=== PATIENT | male | born 1985 | race Two or more races ===

== ENCOUNTER 2019-02-21 18:33 | Emergency (ER) | payer SELFPAY ==
[~2019-02-21] VITALS: Ht 177.8 cm; Wt 81.6 kg
[2019-02-21 18:38] VITALS: BP 138/84
[2019-02-21] MEDS ORDERED: IBUPROFEN 200 MG TABLET. PO ONE (19:30)
[2019-02-21] MEDS ORDERED: HYDR-3164 PO (20:03)
--- NOTE | 2019-02-21 20:03 | PHYS DOC ---
Past Medical History Past Medical History: No Pertinent History Past Surgical History: Other Additional Past Surgical Histo: L Wrist Alcohol Use: Occasionally Drug Use: None Adult General Chief Complaint Chief Complaint: WRIST PAIN HPI HPI 33 y/o male presents to ER via POV for c/o mechanical fall at approx. 1 p.m. when he fell down a few steps. Pt reports he braced his fall with extension of his left upper extremity and has since had left wrist pain. Patient denies striking his head or having any head, neck, or back pain. Patient reports only injury is to left wrist brace had prior surgery 3-4 years ago with plate and pins placed. Review of Systems Review of Systems Constitutional: Denies fatigue Eyes: Denies eye pain HENT: Denies head/neck pain Respiratory: Denies labored breathing Cardiovascular: No additional information not addressed in HPI [] GI: Denies abdominal pain, nausea, vomiting : Denies urinary sxs Musculoskeletal: Denies back pain. Reports lt wrist pain Integument: Denies open wounds/abrasions/bruising Neurologic: Denies headache, focal weakness or sensory changes [] All other systems were reviewed and found to be within normal limits, except as documented in this note. Current Medications Current Medications Current Medications Medications (Trade) Dose Ordered Sig/Haja Start Time Stop Time Status Last Admin Dose Admin Ibuprofen (Motrin) 600 mg 1X ONCE 02/21/19 19:30 02/21/19 19:31 DC 02/21/19 19:20 600 MG Allergies Allergies Allergies Coded Allergies Type Severity Reaction Last Updated Verified No Known Drug Allergies 02/21/19 No Physical Exam Physical Exam Constitutional: Well developed, well nourished, no acute distress, non-toxic appearance. Steady unassisted gait HENT: Normocephalic, atraumatic, oropharynx moist, no oral injury, nose normal. [] Eyes: Pupils equal, conjunctiva normal, no discharge. [] Neck: Normal range of motion, no tenderness, supple, no stridor. [] Cardiovascular: Heart rate regular rhythm, no murmur [] Lungs & Thorax: Bilateral breath sounds clear to auscultation- resp. equal/nonlabored Abdomen: Bowel sounds normal, soft, no tenderness Skin: Warm, dry, no erythema, no rash. [] Back: No tenderness, no CVA tenderness. Full ROM Extremities: No cyanosis, no clubbing, ROM intact, no edema. 2+ radial bilat. Tender lt anterior wrist- no skin discoloration. Deformity medial wrist- healed surgical scar along medial side of wrist/forearm. No tenderness in lt shoulder/elbow- full ROM. Pt is able to perform ROM of lt wrist but c/o pain with movements. Brisk cap refill lt fingers Neurologic: Alert and oriented X 3, normal motor function, normal sensory function, no focal deficits noted. [] Psychologic: Affect normal, judgement normal, mood normal. [] Current Patient Data Vital Signs Vital Signs Date Time Temp Pulse Resp B/P (MAP) Pulse Ox O2 Delivery O2 Flow Rate FiO2 02/21/19 18:38 97.7 89 16 138/84 (102) 98 Room Air 97.7 EKG EKG [] Radiology/Procedures Radiology/Procedures [] Course & Med Decision Making Course & Med Decision Making Pertinent Labs and Imaging studies reviewed. (See chart for details) Pt was evaluated in the ER for c/o lt wrist injury after mechanical fall. Pt's xray was viewed by Dr. Celaya with findings of nondisplaced distal radius fx- this was discussed with patient as well as plans for sugar tong splint to lt arm and sling. Discussed need for patient to call as soon as possible to schedule orthopedic follow-up for further care and reevaluation. Will provide orthopedics referral information on discharge paperwork. Patient educated on monitoring vascular condition of left upper extremity. Patient will be provided with pain medication and also was advised on use of [id number] Tylenol and/or ibuprofen as well as ice packs. At time of discharge discussion patient was in no visible distress. Education provided on signs and symptoms to return to ER. Discharge instructions were discussed. Pt has remained neuro vascular intact in left upper extremity prior to and following splint application. Sling was applied. Capillary refill brisk in all fingers left hand. Dragon Disclaimer Dragon Disclaimer This electronic medical record was generated, in whole or in part, using a voice recognition dictation system. Departure Departure Impression: Primary Impression: Radius distal fracture Disposition: 01 HOME, SELF-CARE Condition: STABLE Referrals: NO PCP (PCP) ELLIOTT REID II, MD Patient Instructions: Arm Sling Use-Brief, RICE - Routine Care for Injuries, Radius Fracture with Rehab-SportsMed Additional Instructions: Call as soon as possible and schedule an appointment with an orthopedic doctor for reevaluation and further care. Tylenol and/or ibuprofen as needed for pain as directed on container. Scripts Hydrocodone/Apap 5-325 (NORCO 5-325 TABLET) 1 Each Tablet 1 TAB PO PRN Q6HRS PRN for PAIN, #12 TAB 0 Refills No driving or drinking alcohol while taking this medication Prov: KERRY DOBSON APRN 02/21/19 KERRY DOBSON APRN Feb 21, 2019 20:03
--- NOTE | 2019-02-22 04:50 | RAD ---
LEFT WRIST, 3 VIEWS Indication: Left wrist forearm pain after fall. Findings: There is acute traumatic nondisplaced longitudinal fracture of the medial distal radius with intra-articular extension. Radiocarpal articulation is maintained. No acute carpal fracture is seen. There is lateral plate and cortical screws of the distal radial diaphysis. No acute fracture of the distal ulna. There is dorsal soft tissue swelling of the wrist. IMPRESSION: Acute traumatic nondisplaced distal radius fracture. Electronically signed by: Tremaine Benjamin MD (02/22/2019 4:47 AM) [id number]
== END 2019-02-21 20:08 | disposition home or self-care (01) ==
LOC: ER 18:33
DX: S52.502A Unspecified fracture of the lower end of left radius, initial encounter for closed fracture (principal); W10.8XXA Fall (on) (from) other stairs and steps, initial encounter; Y93.89 Activity, other specified; Y92.89 Other specified places as the place of occurrence of the external cause; Y99.8 Other external cause status
CPT/HCPCS: 29125; 73110; 99284-25